=== PATIENT | male | born 1990 | race Caucasian/White ===

== ENCOUNTER 2021-05-27 01:20 | Emergency (ER) | payer SELFPAY ==
[2021-05-27] MEDS ORDERED: IBUPROFEN600 MG PO (05:28)
[2021-05-27] MEDS ORDERED: BACTROBAN OINT22 GM EXT (05:28)
== END 2021-05-27 06:00 | disposition home or self-care (01) ==
LOC: ER1 01:20
DX: S61.012A Laceration without foreign body of left thumb without damage to nail, initial encounter (principal); W45.8XXA Other foreign body or object entering through skin, initial encounter
CPT/HCPCS: 12001; 99283